=== PATIENT | female | born 1955 | race Caucasian/White ===

== ENCOUNTER 2017-01-22 14:13 | Emergency (ER) | payer OTHER ==
[2017-01-22 14:37] LABS: ARTERIAL BLD GAS O2 SATURATION 89.7 % (94-98); ARTERIAL BLOOD GAS BASE EXCESS 1.5 mmol/L (-2.0-3.0); ARTERIAL BLOOD GAS HCO3 26.8 mmol/L (22-26); ARTERIAL BLOOD GAS PCO2 47.4 mmHg (32-45); ARTERIAL BLOOD GAS pH 7.37 (7.35-7.45)
[2017-01-22 14:44] LABS: BASO % 0.3 % (0.1-1.2); EOS # 0.3 10_X3_uL (0.0-0.4); GRAN # 6.9 10_X3_uL (1.6-6.1); GRAN % 72.2 % (34.0-71.1); HEMATOCRIT 40.8 % (34-45); HEMOGLOBIN 13.7 g/dL (11.2-15.7); LYMPH # 1.6 10_X3_uL (1.2-3.7); LYMPH % 16.8 % (19.3-51.7); MEAN CORPUSCULAR HEMOGLOBIN 33.4 pg (27.0-33.0); MEAN CORPUSCULAR HGB CONC 33.6 g/dL (32.0-36.0); MEAN CORPUSCULAR VOLUME 99.5 fL (79-95); MEAN PLATELET VOLUME 10.4 fl (7.5-11.5); MONO # 0.7 10_X3_uL (0.2-0.9); MONO % 7.7 % (4.7-12.5); PLATELET COUNT 264 x10_3/uL (182-369); RED CELL DISTRIBUTION WIDTH 14.2 % (11.7-14.4); WHITE BLOOD COUNT 9.6 x10_3/uL (4.0-10.0)
[2017-01-22 15:04] LABS: BLOOD UREA NITROGEN 16 mg/dL (7-18); CALCIUM 9.6 mg/dL (8.7-10.7); CARBON DIOXIDE 25 mmol/L (21-32); CREATINE KINASE 47 U/L (21-215); CREATININE 0.9 mg/dL (0.6-1.3); GLUCOSE,RANDOM 135 mg/dL (70-99); POTASSIUM 4.8 mmol/L (3.5-5.1); SODIUM 139 mmol/L (136-145)
== END 2017-01-22 15:49 | disposition home or self-care (01) ==
LOC: ER 14:13
PROVIDERS: Internal Medicine
DX: J44.9 Chronic obstructive pulmonary disease, unspecified (principal); R06.2 Wheezing; F17.210 Nicotine dependence, cigarettes, uncomplicated; Z88.8 Allergy status to other drugs, medicaments and biological substances
CPT/HCPCS: 36415; 36600; 71020; 80048; 82550; 82553; 82803; 83880; 85025; 93005; 94664; 96374; 99070; 99285-25; J2930

== ENCOUNTER 2017-02-25 13:18 | Emergency (ER) | payer OTHER ==
[2017-02-25 13:49] LABS: BASO % 0.2 % (0.1-1.2); EOS % 0.2 % (0.7-5.8); GRAN # 6.4 10_X3_uL (1.6-6.1); GRAN % 77.9 % (34.0-71.1); HEMATOCRIT 43.1 % (34-45); HEMOGLOBIN 14.8 g/dL (11.2-15.7); LYMPH # 1.3 10_X3_uL (1.2-3.7); LYMPH % 15.5 % (19.3-51.7); MEAN CORPUSCULAR HEMOGLOBIN 33.6 pg (27.0-33.0); MEAN CORPUSCULAR HGB CONC 34.3 g/dL (32.0-36.0); MEAN CORPUSCULAR VOLUME 97.7 fL (79-95); MEAN PLATELET VOLUME 9.9 fl (7.5-11.5); MONO # 0.5 10_X3_uL (0.2-0.9); MONO % 6.2 % (4.7-12.5); PLATELET COUNT 261 x10_3/uL (182-369); RED BLOOD COUNT 4.41 x10_6/uL (3.9-5.2); RED CELL DISTRIBUTION WIDTH 13.2 % (11.7-14.4); WHITE BLOOD COUNT 8.2 x10_3/uL (4.0-10.0)
[2017-02-25 14:15] LABS: ALBUMIN 4.5 gm/dL (3.4-5.0); BILIRUBIN,TOTAL 0.63 mg/dL (0.0-1.0); MAGNESIUM 1.7 mg/dL (1.8-2.4); POTASSIUM 4.5 mmol/L (3.5-5.1); TOTAL PROTEIN 7.9 gm/dL (6.4-8.2)
== END 2017-02-25 14:57 | disposition left against medical advice (07) ==
LOC: ER 13:18
PROVIDERS: Internal Medicine
DX: R11.0 Nausea (principal); R05 Cough; I10 Essential (primary) hypertension; J44.9 Chronic obstructive pulmonary disease, unspecified; Z79.899 Other long term (current) drug therapy; Z88.8 Allergy status to other drugs, medicaments and biological substances
CPT/HCPCS: 36415; 80053; 82550; 82553; 83605; 83690; 83735; 85025; 93005; 96361; 96374; 99070; 99283-25